=== PATIENT | male | born 1960 | race African-American/Black ===

== ENCOUNTER 2021-04-27 04:23 | Emergency (ER) | payer MEDICAID ==
[~2021-04-27] VITALS: Ht 175.3 cm; Wt 68.0 kg
[2021-04-27] MEDS ORDERED: MORPHINE SULFATE 4 MG/ML CPJ (NOT FOR IM USE) IV ONE (05:00)
[2021-04-27] MEDS ORDERED: ONDANSETRON HCL 4MG/2ML INJ IV ONE (05:00)
[2021-04-27 05:42] LABS: BASOPHILS % 0.2 % (0.0-2.0); EOSINOPHILS % 0.8 % (0.0-5.0); HEMATOCRIT. 39.5 % (42.0-52.0); HEMOGLOBIN. 13.2 g/dL (14.0-18.0); LYMPHOCYTES % 9.8 % (20.0-50.0); MEAN CORPUSCULAR HEMOGLOBIN 29.1 pg (28.0-32.0); MEAN CORPUSCULAR VOLUME 86.9 fL (80.0-94.0); MONOCYTES % 8.5 % (2.0-8.0); NEUTROPHILS % 80.7 % (40.0-76.0); PLATELET 234 x1000/uL (130-400); RED BLOOD CELL COUNT 4.55 mill/uL (4.7-6.1); RED CELL DISTRIBUTION WIDTH 13.4 % (11.6-14.6)
[2021-04-27 05:45] LABS: CHLORIDE 110 mEq/L (98-107)
[2021-04-27 05:49] LABS: ETHANOL BLOOD < 10 mg/dL
[2021-04-27] MEDS ORDERED: LIDOCAINE HCL/EPINEPHRINE 1%-EPI 1:100,000 20 ML VIAL INFIL ONE (06:15)
[2021-04-27] MEDS ORDERED: TETANUS, DIPHTHERIA, PERTUSSIS VAC/PF 0.5ML (>10YR OLD) IM ONE (06:15)
[2021-04-27] MEDS ORDERED: IOHEXOL-300 100 ML BOTTLE ONE (09:39)
[2021-04-27 14:15] VITALS: BP 124/79
== END 2021-04-27 15:33 | disposition home or self-care (01) ==
LOC: ER 04:23
DX: S09.8XXA Other specified injuries of head, initial encounter (principal); S01.511A Laceration without foreign body of lip, initial encounter; I10 Essential (primary) hypertension; W13.4XXA Fall from, out of or through window, initial encounter; Y93.9 Activity, unspecified; Y92.9 Unspecified place or not applicable
CPT/HCPCS: 12014; 36415; 70450; 70486; 71045; 71260; 72125; 72170; 73562; 74177; 80053; 80320; 85025; 86850; 86900; 86901; 90471; 90715; 96374; 96375; 99291; J2270; J2405; J3490; Q9967; Z7610; G0480

== ENCOUNTER 2023-11-22 23:31 | Emergency (ER) | payer MEDICAID ==
[~2023-11-22] VITALS: Ht 172.7 cm; Wt 79.0 kg
[2023-11-22 23:37] VITALS: BP 149/88; PULSE 60; RESP 18; TEMP 98.8; O2SAT 98
[2023-11-23 00:06] LABS: CHLORIDE 108 mEq/L (98-107); POTASSIUM 3.3 mEq/L (3.5-5.1); SODIUM 143 mEq/L (136-145)
[2023-11-23 00:07] LABS: CARBON DIOXIDE 28 mEq/L (21-32)
[2023-11-23 00:09] LABS: INR 0.9; PROTHROMBIN TIME 10.6 sec (9.6-11.0)
[2023-11-23 00:10] LABS: BASOPHILS % 0.5 % (0.0-2.0); EOSINOPHILS % 5.1 % (0.0-5.0); HEMATOCRIT. 35.9 % (42.0-52.0); LYMPHOCYTES % 38.7 % (20.0-50.0); MEAN CORPUSCULAR HEMOGLOBIN 29.1 pg (28.0-32.0); MEAN CORPUSCULAR HGB CONC 33.3 g/dL (31.0-37.0); MEAN CORPUSCULAR VOLUME 87.2 fL (80.0-94.0); MEAN PLATELET VOLUME 7.1 fl (7.4-10.4); MONOCYTES % 13.3 % (2.0-8.0); NEUTROPHILS % 42.4 % (40.0-76.0); PLATELET 264 x1000/uL (130-400); RED BLOOD CELL COUNT 4.11 mill/uL (4.7-6.1); RED CELL DISTRIBUTION WIDTH 14.1 % (11.6-14.6)
[2023-11-23 00:12] LABS: CREATININE 1.1 mg/dL (0.6-1.3)
[2023-11-23 00:13] LABS: GLUCOSE 109 mg/dL (70-105); UREA NITROGEN BLOOD 12 mg/dL (9-23)
[2023-11-23 00:14] LABS: ALANINE AMINOTRANSFERASE 10 IU/L (10-49); ALBUMIN 3.9 g/dL (3.2-4.8); ASPARTATE AMINOTRANSFERASE 17 IU/L (<34)
[2023-11-23 00:15] LABS: BILIRUBIN TOTAL 0.3 mg/dL (0.1-1.0); PROTEIN TOTAL 6.5 g/dL (6.0-8.3)
[2023-11-23 01:15] LABS: BILIRUBIN DIRECT < 0.1 mg/dL (<=3.0)
[2023-11-23 01:16] LABS: ETHANOL BLOOD < 10 mg/dL (<10)
== END 2023-11-23 04:38 | disposition left against medical advice (07) ==
LOC: ER 23:37
DX: K40.90 Unilateral inguinal hernia, without obstruction or gangrene, not specified as recurrent (principal); I10 Essential (primary) hypertension; Z59.00 Homelessness unspecified
CPT/HCPCS: 36415; 80048; 80076; 80320; 85025; 99283; G0480

== ENCOUNTER 2024-03-01 22:41 | Emergency (ER) | payer MEDICAID ==
[~2024-03-01] VITALS: Ht 180.3 cm; Wt 78.0 kg
[2024-03-01 22:45] VITALS: BP 149/86; PULSE 77; RESP 18; TEMP 98; O2SAT 99
== END 2024-03-02 02:59 | disposition home or self-care (01) ==
LOC: ER 22:41
DX: R53.83 Other fatigue (principal); R40.0 Somnolence; I10 Essential (primary) hypertension; F19.90 Other psychoactive substance use, unspecified, uncomplicated; Z98.890 Other specified postprocedural states
CPT/HCPCS: 71045; 70450; 99284; Z7610